=== PATIENT | male | born 1960 | race Caucasian/White ===

== ENCOUNTER → 2017-03-28 | Outpatient (CLI) | payer OTHER ==
[~2017-03-28] VITALS: Ht 182.8 cm; Wt 76.2 kg
[~2017-03-28] MED LIST: ANTIVERT25 MG PO; ATIVAN1 MG PO; AUGMENTIN 875 M1 TAB PO; CIPROFLOXACIN500 MG PO; CLARITIN10 MG PO; CYCLOBENZAPRINE10 MG PO; DAYPRO600 M1 PO; EC NAPROSYN375 MG PO; FLEXERIL10 MG PO; FLEXERIL5 MG PO; HYDROCODONE BIT1 T11 PO; LOMOTIL 0.025 M1 TA1 PO; MEDROL DOSEPAK4 MG PO; MOTRIN800 MG PO; Motrin,Rufen800 MG PO; NOVAPLUS V0.09 MG/Ac IH; PERCOCET 325 MG1 TA2 PO; PREDNICOT20 MG PO; PREVACID30 M1 PO; PRILOSEC20 MG PO; SKELAXIN800 MG PO; VICODIN 5/500 505 MG PO; ZANTAC150 MG PO; ZITHROMAX Z PA250 MG PO; ZITHROMAX250 MG PO; ZOFRAN4 MG PO
[2017-03-28 12:51] LABS: BILIRUBIN NEGATIVE (NEGATIVE); BLOOD NEGATIVE (NEGATIVE); CLARITY CLEAR (CLEAR); COLOR YELLOW (YELLOW); GLUCOSE NEGATIVE (NEGATIVE); KETONE NEGATIVE (NEGATIVE); LEUKO ESTERASE NEGATIVE (NEGATIVE); NITRITE NEGATIVE (NEGATIVE); PROTEIN NEGATIVE (NEGATIVE); UROBILINOGEN 0.2 E.U./dl (0.2-1.0)
[2017-03-28 12:53] LABS: BASO # 0.1 10*3/uL (0.0-0.1); BASO % 0.7 % (0.0-1.0); EOS # 0.2 10*3/uL (0.0-0.4); EOS % 3.1 % (1.0-4.0); HEMATOCRIT 46.3 % (42.0-52.0); HEMOGLOBIN 15.4 g/dl (14.0-18.0); LYMPH # 2.1 10*3/uL (1.3-4.4); LYMPH % 30.5 % (27.0-41.0); MEAN CELL VOLUME 94.1 fl (80.0-94.0); MEAN CORPUSCULAR HGB 31.3 pg (27.0-31.0); MEAN CORPUSCULAR HGB CONC 33.3 g/dl (33.0-37.0); MEAN PLATELET VOLUME 9.5 fl (9.6-12.3); MONO # 0.5 10*3/uL (0.1-1.0); MONO % 7.1 % (3.0-9.0); NEUT # 3.9 10*3/uL (2.3-7.9); NEUT % 58.3 % (47.0-73.0); PLATELET COUNT AUTOMATED 267 10*3/uL (130-400); RED BLOOD COUNT 4.92 10*6/uL (4.50-5.90); RED CELL DISTRI WIDTH 13.3 % (0-14.5); WHITE BLOOD COUNT 6.7 10*3/uL (4.8-10.8)
[2017-03-28 13:18] LABS: BUN 13 mg/dl (7-24); CARBON DIOXIDE 29 mmol/L (21-32); CHLORIDE 108 mmol/L (98-107); EST GLOM FILT AFRICAN AMERICAN > 60 ml/min; GLUCOSE 69 mg/dL (65-99); POTASSIUM 4.5 mmol/L (3.5-5.1); SODIUM 139 mmol/L (136-145)
[2017-03-28 13:22] LABS: MUCOUS TRACE; RBC 0-2 rbc/hpf (0-2); WBC 0-2 wbc/hpf (0-5)
[2017-03-28 13:28] LABS: INTERNATIONAL NORM RATIO 0.9 (2.0-3.5)
== END | disposition home or self-care (01) ==
LOC: SDC 11:00 → LAB 11:57 → SDC 03-31 03:35 → EDSTATUS 03-31 11:00 → SDC 03-31 11:00
PROVIDERS: Surgery
DX: K64.9 Unspecified hemorrhoids (principal); Z53.8 Procedure and treatment not carried out for other reasons

== ENCOUNTER → 2017-04-07 | Day surgery (SDC) | payer OTHER ==
[~2017-04-07] VITALS: Ht 182.8 cm; Wt 76.2 kg
[~2017-04-07] MED LIST changes: +NORCO 5-325 TA1 EACH PO
--- NOTE | ~2017-04-07 | O ---
[place], [place] OPERATIVE NOTE NAME: JOHN MARY JR UNIT #: [id number] ROOM: DOCTOR: MARINO GARRETT MD BIRTHDATE: [birth year] DOS: 04/07/2017 PREOPERATIVE DIAGNOSIS: Grade 3 and 4 internal as well as external hemorrhoids. POSTOPERATIVE DIAGNOSIS: Grade 3 and 4 internal as well as external hemorrhoids. PROCEDURE PERFORMED: Doppler-guided hemorrhoidal artery ligation. SURGEON: Marino Garrett MD. CEPHALOMETRIC TRACER: None. ANESTHESIA: MAC. INDICATIONS: This is a 56-year-old gentleman with advanced internal and one external hemorrhoid at 5 o'clock position, who is here for the above-mentioned procedure. The procedure and its complications were explained to the patient in detail preoperatively. Complications that were discussed included, but were not limited to, bleeding, urinary retention, prolonged pain, recurrence, and damage to the underlying vital structures. He agreed to proceed. DESCRIPTION OF PROCEDURE: After identifying the patient, the patient was brought to the operating suite and laid in the supine position. After a time-out procedure was called, IV sedation was administered, and the patient was then placed in the lithotomy position, the parts were then painted and draped in the usual sterile fashion. A digital rectal exam was performed, which was within normal limits. With the help of a Doppler probe, ligations of hemorrhoidal arteries were performed at 1, 3, 5, 7, 9, and 11 o'clock positions respectively. The large and external hemorrhoid at 5 o'clock was left untouched. The patient would not consent to hemorrhoidectomy for this external hemorrhoid. After this was done, the digital rectal exam was performed, and with the help of gauze and pressure, bleeding was controlled. Thereafter, hemostasis was confirmed again, and local anesthesia was infiltrated in the perianal fashion (1% plain lidocaine). Thereafter, digital rectal exam was performed again, and there was no blood on the examining finger, there was no hematoma that could be palpated. At this point, the patient was placed back in the lithotomy position and brought back to the recovery room in a stable fashion. There were no complications. Dr. Marino Garrett, the attending surgeon, was present throughout the operating case. [place], [place] OPERATIVE NOTE NAME: JOHN MARY JR UNIT #: [id number] ROOM: DOCTOR: MARINO GARRETT MD BIRTHDATE: [birth year] Marino Garrett MD CM:OPRECORD:OPERATIVE NOTE [id number] MARINO GARRETT MD 04/07/17 1123 [id number]
[2017-04-07 09:00] VITALS: BP 110/78
[2017-04-07 10:40] VITALS: BP 112/77
[2017-04-07 10:55] VITALS: BP 119/88
[2017-04-07 11:09] VITALS: BP 117/83
[2017-04-07 11:35] VITALS: BP 116/88
== END | disposition home or self-care (01) ==
LOC: SDC 09:10
DX: K64.2 Third degree hemorrhoids (principal); K64.3 Fourth degree hemorrhoids; K64.4 Residual hemorrhoidal skin tags; F17.210 Nicotine dependence, cigarettes, uncomplicated; F41.9 Anxiety disorder, unspecified; Z98.890 Other specified postprocedural states
CPT/HCPCS: 00902; 0249T

== ENCOUNTER 2018-12-08 04:54 | Emergency (ER) | payer OTHER ==
[~2018-12-08] VITALS: Ht 182.8 cm; Wt 78.0 kg
[2018-12-08 04:54] VITALS: BP 145/100
[2018-12-08 06:23] LABS: BUN 11 mg/dl (7-24); CHLORIDE 106 mmol/L (98-107); SODIUM 140 mmol/L (136-145)
[2018-12-08] MEDS ORDERED: NAPROSYN500 MG PO (06:32)
== END 2018-12-08 06:33 | disposition home or self-care (01) ==
LOC: ED 04:54
PROVIDERS: Emergency Medicine
DX: M77.9 Enthesopathy, unspecified (principal); Z88.6 Allergy status to analgesic agent

== ENCOUNTER 2018-12-15 16:22 | Emergency (ER) | payer OTHER ==
[~2018-12-15] VITALS: Ht 182.8 cm; Wt 78.0 kg
[~2018-12-15 16:22] MED LIST changes: +NAPROSYN500 MG PO
[2018-12-15 16:38] LABS: BASO % 0.4 % (0.0-1.0); EOS # 0.2 10*3/uL (0.0-0.4); EOS % 2.9 % (1.0-4.0); HEMATOCRIT 45.2 % (42.0-52.0); HEMOGLOBIN 15.3 g/dl (14.0-18.0); LYMPH # 2.2 10*3/uL (1.3-4.4); LYMPH % 29.6 % (27.0-41.0); MEAN CELL VOLUME 94.6 fl (80.0-94.0); MEAN CORPUSCULAR HGB CONC 33.8 g/dl (33.0-37.0); MEAN PLATELET VOLUME 9.2 fl (9.6-12.3); MONO # 0.5 10*3/uL (0.1-1.0); MONO % 7.2 % (3.0-9.0); NEUT # 4.4 10*3/uL (2.3-7.9); NEUT % 59.5 % (47.0-73.0); PLATELET COUNT AUTOMATED 318 10*3/uL (130-400); RED BLOOD COUNT 4.78 10*6/uL (4.50-5.90); RED CELL DISTRI WIDTH 13.1 % (0-14.5); WHITE BLOOD COUNT 7.5 10*3/uL (4.8-10.8)
[2018-12-15 16:57] LABS: ALBUMIN 3.7 gm/dl (3.1-4.5); ALKALINE PHOSPHATASE 102 U/L (45-117); BUN 15 mg/dl (7-24); CHLORIDE 109 mmol/L (98-107); CREATININE 0.95 mg/dL (0.70-1.30); SGOT/AST 29 IU/L (3-35); SGPT/ALT 43 U/L (12-78); SODIUM 140 mmol/L (136-145); TOTAL PROTEIN 7.3 gm/dL (6.4-8.2)
[2018-12-15 18:10] VITALS: BP 148/88
== END 2018-12-15 18:13 | disposition home or self-care (01) ==
LOC: ED 16:22
PROVIDERS: Nurse Practitioner Family
DX: S30.1XXA Contusion of abdominal wall, initial encounter (principal); R03.0 Elevated blood-pressure reading, without diagnosis of hypertension; Z88.6 Allergy status to analgesic agent; X58.XXXA Exposure to other specified factors, initial encounter; Y93.89 Activity, other specified; Y92.89 Other specified places as the place of occurrence of the external cause; Y99.8 Other external cause status

== ENCOUNTER → 2019-01-30 | Outpatient (CLI) | payer OTHER | END | disposition home or self-care (01) | LOC: US 11:30 | DX: M79.662 Pain in left lower leg (principal) ==

== ENCOUNTER → 2019-05-13 | Outpatient (CLI) | payer OTHER ==
[2019-05-13 12:31] LABS: CREATININE 0.98 mg/dL (0.70-1.30)
== END | disposition home or self-care (01) ==
LOC: MRI 11:58 → LAB 11:58 → MRI 13:00
PROVIDERS: Neurological Surgery
DX: M51.16 Intervertebral disc disorders with radiculopathy, lumbar region (principal); M48.061 Spinal stenosis, lumbar region without neurogenic claudication; M46.96 Unspecified inflammatory spondylopathy, lumbar region